=== PATIENT | female | born 1975 | race Caucasian/White ===

== ENCOUNTER → 2018-12-11 15:58 | Outpatient (CLI) | payer OTHER, SELFPAY ==
--- NOTE | 2018-12-11 | DI.US.S_ITS ---
PROCEDURE: US ABDOMEN COMPLETE INDICATIONS: UNSPECIFIED ABDOMINAL PAIN TECHNIQUE: Real-time scanning was performed of the abdominal and retroperitoneal organs, with image documentation. COMPARISON: None. FINDINGS: Liver: Liver is normal in size and homogeneous in echotexture. Gallbladder: The gallbladder wall measures 3.6 mm in diameter. There is a mild sonographic Nelson's sign. No pericholecystic fluid. A solitary shadowing stone is present within the gallbladder fundus. Biliary ducts: Intrahepatic bile ducts are non-dilated. Extrahepatic bile duct caliber measures 4.6 mm. Normal is 6-7 mm or less in diameter, or 10 mm or less post-cholecystectomy. Pancreas: The pancreas is not well-visualized. Spleen: Spleen is normal in size and homogeneous in echotexture. Kidneys: Kidneys are normal in size and echotexture. Right kidney measures 12.2 cm long; left kidney measures 12.0 cm long. No hydronephrosis or nephrolithiasis. No solid masses. Aorta: Visualized aorta is normal in caliber at less than 3 cm. Iliacs: Proximal common iliac arteries are normal in caliber at less than 2.5 cm. IVC: Intrahepatic inferior vena cava is patent. Miscellaneous: No free abdominal fluid. IMPRESSION: 1. Cholelithiasis. Gallbladder wall the upper limits of normal for size. There is no pericholecystic fluid to definitively suggest acute cholecystitis; however please correlate with LFTs and white blood cell count. Early acute cholecystitis could be considered in the differential diagnosis. 2. No findings to suggest choledocholithiasis. Dictated by: Tereza Monte M.D. on 12/12/2018 at 9:15 Approved by: Tereza Monte M.D. on 12/12/2018 at 9:18
== END ==
PROVIDERS: PCP Family Medicine; Visit Provider Family Medicine
DX: R10.9 Unspecified abdominal pain (principal); K80.20 Calculus of gallbladder without cholecystitis without obstruction
CPT/HCPCS: 76700

== ENCOUNTER 2019-08-06 10:31 | Emergency (ER) | payer OTHER, SELFPAY ==
[2019-08-06] VITALS (10 sets, daily range): BP systolic 121–150; BP diastolic 64–91; PULSE 61–88; RESP 15–25; TEMP 36.7; O2SAT 98–100; BMI 48.3
--- NOTE | 2019-08-06 10:49 | DI.RAD.S_ITS ---
PROCEDURE: XR ANKLE RT 2V INDICATIONS: right ankle deformity after a fall TECHNIQUE: 2 views of the ankle were acquired. COMPARISON: None. FINDINGS: Bones: Acute displaced fractures involving distal fibular shaft and posterior malleolus is seen with complete disruption of ankle mortise and posterior lateral subluxation/dislocation at tibiotalar joint. No suspicious bony lesions. Soft tissues: No tibiotalar joint effusion. Achilles tendon appears normal. IMPRESSION: Fracture dislocation at right ankle joint as above. Dictated by: Esteban Valadez M.D. on 08/06/2019 at 11:03 Approved by: Esteban Valadez M.D. on 08/06/2019 at 11:04
[2019-08-06] MEDS: KETOROLAC 60 MG/2 ML VIAL 30 MG IV (11:22)
[2019-08-06] MEDS: SODIUM CHLORIDE 0.9% 1,000 ML 1000 ML IV (11:35)
[2019-08-06] MEDS: HYDROMORPHONE 0.5 MG INJ IV (11:36)
--- NOTE | 2019-08-06 11:59 | ED.LOWEXIN ---
HPI - Extremity Injury (Lower) <MARCEL Richter - Last Filed: 08/06/19 16:41> General Chief Complaint: Extremity Injury, Lower Stated Complaint: Right ankle Fracture Time Seen by Provider: 08/06/19 11:07 Source: patient and EMS Mode of arrival: EMS Limitations: no limitations History of Present Illness HPI Narrative: 44yo obese female presents to the emergency department via EMS for right ankle pain and deformity that occurred after a fall while hiking in [facility]. Patient complains of significant 10/10 pain and inability to put weight on leg after fall. She reports significant pain with movement. She states she is able to wiggle her toes. She denies any previous fracture or any other medical issues. Patient denies any dizziness or syncope before after the fall. She denies any fevers, chills, cough, shortness of breath, nausea, vomiting, diarrhea, chest pain, or any other concerns. Patient denies any other injury such as knee pain, wrist pain, neck pain, or head injury. Related Data Previous Rx's Medication Instructions Recorded ondansetron 4 mg PO Q6H PRN #14 tab 08/06/19 oxycodone-acetaminophen [Percocet] 1 tab PO Q4-6H PRN #20 tab 08/06/19 Allergies Allergy/AdvReac Type Severity Reaction Status Date / Time No Known Drug Allergies Allergy Verified 08/06/19 10:40 Review of Systems <MARCEL Richter - Last Filed: 08/06/19 16:41> Review of Systems Narrative: REVIEW OF SYSTEMS: GENERAL: Denies fever or chills. HENT: No head trauma. EYES: No double vision or vision loss. CARDIOVASCULAR: No chest pain or syncope. RESPIRATORY: No shortness of breath or cough. GASTROINTESTINAL: No nausea, vomiting, diarrhea, or constipation. GENITOURINARY: No flank pain or dysuria. MUSCULOSKELETAL: Complains of right ankle pain, see HPI. INTEGUMENTARY: No rash, lesions, or pruritus. NEURO: No numbness, tingling. Patient History <MARCEL Richter - Last Filed: 08/06/19 16:41> Medical History No significant medical problems (Acute) Social History Smoking Status: Unknown if ever smoked Smoking Status: Unknown if ever smoked alcohol intake frequency: holidays/special occasions only Substance Use Type: does not use Exam <MARCEL Richter - Last Filed: 08/06/19 16:41> Initial Vital Signs Initial Vital Signs: Vital Signs Temperature 98.0 F 08/06/19 10:40 Pulse Rate 70 08/06/19 10:40 Respiratory Rate 15 08/06/19 10:40 Blood Pressure 126/79 08/06/19 10:40 Pulse Oximetry 99 08/06/19 10:40 PHYSICAL EXAMINATION: GENERAL: Well groomed, alert, and cooperative. Obese. Answers questions promptly and appropriately. Vital signs noted. HENT: Normocephalic, atraumatic. EYES: PERRLA. Symmetrical, sclera white, no periorbital swelling. CARDIOVASCULAR: S1 and S2 sounds normal. Regular rate and rhythm, no murmurs, clicks, or bruits. No pedal edema. RESPIRATORY: Normal respiratory rate, trachea midline, airway patent. No stridor, nasal flaring or accessory muscle use. Lungs are clear in all peters. MUSCULOSKELETAL: Deformity of right ankle with medial malleolus dislocation present on external exam. Moderate bruising and swelling noted, distal foot CMS intact, pedal pulses 2+ and strong. Patient able to move toes. Popliteal pulses 2+ and strong. No tenderness with palpation of knee or hip. None tenderness to hands or elbows. No lacerations or lesions to skin. SKIN: Warm, dry, soft, appropriate color for ethnicity. No lesions, rashes, or wounds. NEURO: Alert and Oriented X 3. No sensory deficits. PSYCH: Appropriate affect and mood. <Lars Mitchell MD - Last Filed: 08/06/19 18:20> Initial Vital Signs Initial Vital Signs: Vital Signs Temperature 98.0 F 08/06/19 10:40 Pulse Rate 70 08/06/19 10:40 Respiratory Rate 15 08/06/19 10:40 Blood Pressure 126/79 08/06/19 10:40 Pulse Oximetry 99 08/06/19 10:40 Procedures <MARCEL Richter - Last Filed: 08/06/19 16:41> Orthopedic Fracture Reduction Fracture #1: Time Out Performed: Yes Side: right Fracture Reduction Location: tibia and fibula Analgesia: procedural sedation Technique: direct manipulation Post Reduction X-rays Demonstrate: acceptable reduction Post-reduction neuro exam: intact Post-reduction vascular exam: intact Splint Applied: Yes Patient Tolerated Procedure: Well Additional Comments: Fracture reduction done by Dr. Mitchell. Propofol was administered, started with a loading dose of 40 mg, titrated dose by 10 mg for a total of 210 mg of propofol. Patient was awake and talking the entire time, did not complain of pain. Manual reduction completed by Dr. Mitchell, I applied the splint. CMS intact before and after splint. Cap refill <2 seconds pre and post splint application. Course <MARCEL Richter - Last Filed: 08/06/19 16:41> Course Course Narrative: Patient was given Toradol to help with pain as well as Dilaudid for sedation. Post sedation patient was given a Percocet, she reported a significant reduction in pain after splinting and reduction. Pain was acceptable after Percocet administration. Patient was able to tolerate crutch training. Orders Ordered: ED Orders 08/06/19 10:49 XR ankle RT 2V Stat 08/06/19 13:11 XR ankle RT min 3V Stat Discontinued Medications Albuterol (Ventolin Hfa) 2 puff INH NOW ONE Stop: 08/06/19 14:17 Hydromorphone HCl (Dilaudid) 0.5 mg IV NOW ONE Stop: 08/06/19 11:29 Last Admin: 08/06/19 11:36 Dose: 0.5 mg Documented by: MARLON Sodium Chloride (Normal Saline 0.9%) 1,000 mls @ 1,000 mls/hr IV BOLUS ONE Stop: 08/06/19 12:29 Last Infusion: 08/06/19 13:16 Dose: 0 mls/hr Documented by: DREWTONRaulito Admin: 08/06/19 11:35 Dose: 1,000 mls/hr Documented by: AMRLON Ketorolac Tromethamine (Toradol) 30 mg IV NOW ONE Stop: 08/06/19 11:12 Last Admin: 08/06/19 11:22 Dose: 30 mg Documented by: MARLON Oxycodone/Acetaminophen (Percocet 5/325) 1 tab PO NOW ONE Stop: 08/06/19 13:18 Last Admin: 08/06/19 13:20 Dose: 1 tab Documented by: MARLON Propofol (Diprivan) 290 mg 2 mg/kg (290 mg) IV NOW ONE Stop: 08/06/19 11:33 Last Admin: 08/06/19 13:13 Dose: 210 mg Documented by: MARLON Consultations Consultation #1: Patient staffed with Dr. Mitchell discussed pre and post reduction films. Dr. Mitchell performed manual reduction. 1317: Spoke with Dr. Bar, orthopedic, reviewed x-ray films. Recommended post reduction films and follow-up outpatient. Vital Signs Vital signs: Vital Signs - 8 hr 08/06/19 10:40 08/06/19 11:28 08/06/19 12:02 Temperature 98.0 F Pulse Rate 70 88 70 Respiratory Rate 15 18 18 Blood Pressure 126/79 Blood Pressure [Right Arm] 131/77 129/83 Pulse Oximetry 99 99 99 08/06/19 12:07 08/06/19 12:30 08/06/19 12:55 Temperature Pulse Rate 61 72 77 Respiratory Rate 18 19 18 Blood Pressure Blood Pressure [Right Arm] 127/66 138/64 127/77 Pulse Oximetry 98 98 100 08/06/19 13:00 08/06/19 13:05 08/06/19 13:10 Temperature Pulse Rate 74 71 69 Respiratory Rate 25 H 24 19 Blood Pressure Blood Pressure [Right Arm] 150/91 H 146/71 H 136/64 Pulse Oximetry 100 100 100 08/06/19 14:31 Temperature Pulse Rate 70 Respiratory Rate 20 Blood Pressure Blood Pressure [Right Arm] 121/65 Pulse Oximetry 100 <Lars Mitchell MD - Last Filed: 08/06/19 18:20> Orders Ordered: ED Orders 08/06/19 10:49 XR ankle RT 2V Stat 08/06/19 13:11 XR ankle RT min 3V Stat Discontinued Medications Albuterol (Ventolin Hfa) 2 puff INH NOW ONE Stop: 08/06/19 14:17 Hydromorphone HCl (Dilaudid) 0.5 mg IV NOW ONE Stop: 08/06/19 11:29 Last Admin: 08/06/19 11:36 Dose: 0.5 mg Documented by: MARLON Sodium Chloride (Normal Saline 0.9%) 1,000 mls @ 1,000 mls/hr IV BOLUS ONE Stop: 08/06/19 12:29 Last Infusion: 08/06/19 13:16 Dose: 0 mls/hr Documented by: Admin: 08/06/19 11:35 Dose: 1,000 mls/hr Documented by: MARLON Ketorolac Tromethamine (Toradol) 30 mg IV NOW ONE Stop: 08/06/19 11:12 Last Admin: 08/06/19 11:22 Dose: 30 mg Documented by: MARLON Oxycodone/Acetaminophen (Percocet 5/325) 1 tab PO NOW ONE Stop: 08/06/19 13:18 Last Admin: 08/06/19 13:20 Dose: 1 tab Documented by: MARLON Propofol (Diprivan) 290 mg 2 mg/kg (290 mg) IV NOW ONE Stop: 08/06/19 11:33 Last Admin: 08/06/19 13:13 Dose: 210 mg Documented by: MARLON Vital Signs Vital signs: Vital Signs - 8 hr 08/06/19 10:40 08/06/19 11:28 08/06/19 12:02 Temperature 98.0 F Pulse Rate 70 88 70 Respiratory Rate 15 18 18 Blood Pressure 126/79 Blood Pressure [Right Arm] 131/77 129/83 Pulse Oximetry 99 99 99 08/06/19 12:07 08/06/19 12:30 08/06/19 12:55 Temperature Pulse Rate 61 72 77 Respiratory Rate 18 19 18 Blood Pressure Blood Pressure [Right Arm] 127/66 138/64 127/77 Pulse Oximetry 98 98 100 08/06/19 13:00 08/06/19 13:05 08/06/19 13:10 Temperature Pulse Rate 74 71 69 Respiratory Rate 25 H 24 19 Blood Pressure Blood Pressure [Right Arm] 150/91 H 146/71 H 136/64 Pulse Oximetry 100 100 100 08/06/19 14:31 Temperature Pulse Rate 70 Respiratory Rate 20 Blood Pressure Blood Pressure [Right Arm] 121/65 Pulse Oximetry 100 MDM - Extremity Injury (Lower) <MARCEL Richter - Last Filed: 08/06/19 16:41> Medical Records Attestation: I reviewed the patient's medical records. Lab Data Attestation: I reviewed the patient's lab results. Labs: Point of Care Testing Test Results Not applicable Imaging Data Extremity x-ray #1: Radiologist's Impression: [address] [address] XRay Report Signed Patient: Fatimah Cosby AMR#: [id number] : 1975Acct:[id number] Age/Sex: 44 / FDate of Service: 08/06/19 Loc: ED Accession Number: [id number] Procedure: XR ankle RT 2V Ordering Provider: Lars Mitchell MD PROCEDURE: XR ANKLE RT 2V INDICATIONS: right ankle deformity after a fall TECHNIQUE: 2 views of the ankle were acquired. COMPARISON: None. FINDINGS: Bones: Acute displaced fractures involving distal fibular shaft and posterior malleolus is seen with complete disruption of ankle mortise and posterior lateral subluxation/dislocation at tibiotalar joint. No suspicious bony lesions. Soft tissues: No tibiotalar joint effusion. Achilles tendon appears normal. IMPRESSION: Fracture dislocation at right ankle joint as above. Dictated by: Esteban Valadez M.D. on 08/06/2019 at 11:03 Approved by: Esteban Valadez M.D. on 08/06/2019 at 11:04 Extremity x-ray #2: Radiologist's Impression: [address] [address] XRay Report Signed Patient: Fatimah Cosby AMR#: [id number] : 1975Acct:[id number] Age/Sex: 44 / FDate of Service: 08/06/19 Loc: ED Accession Number: [id number] Procedure: XR ankle RT min 3V Ordering Provider: Isi Krishnamurthy PROCEDURE: XR ANKLE RT MIN 3V INDICATIONS: Post reduction films TECHNIQUE: 3 views of the ankle were acquired. COMPARISON: [facility], , XR ANKLE RT 2V, 08/06/2019, 10:43. FINDINGS: Bones: There is interval reduction of earlier noted trimalleolar fracture with significantly improved ankle alignment. Slight displacements at medial malleolus and lateral malleolus fracture sites are seen. No suspicious bony lesions. Soft tissues: No tibiotalar joint effusion. Achilles tendon appears normal. IMPRESSION: Interval reduction of earlier noted trimalleolar fracture/dislocation of ankle joint with significantly improved ankle alignment. Dictated by: Esteban Valadez M.D. on 08/06/2019 at 13:28 Approved by: Esteban Valadez M.D. on 08/06/2019 at 13:30 [facility] Narrative Medical decision making narrative: 44-year-old healthy female presents emergency department with a right ankle deformity and x-ray that confirms a trimalleolar fracture and dislocation. No concern for vascular compromise as CMS is intact, pedal popliteal pulses were 2+ and strong. No concern for open fracture as there were no lesion or punctured in the skin. Less concern for other injury due to benign examination, no reports of head injury or other pain. Conscious sedation was used to perform manual reduction by Dr. Mitchell. Patient tolerated procedure well without any complications. Bleeding was placed, CMS remained intact pre and post splint. After discussion with Ortho, patient was referred to outpatient continued follow-up. Crutches were given. She was instructed to not put any weight on her leg. Patient had adequate pain control with Percocet post sedation. She was discharged with medications after counseling a benefits and side effects narcotics. <Lars Mitchell MD - Last Filed: 08/06/19 18:20> Lab Data Labs: Point of Care Testing Test Results Not applicable Discharge Plan Departure Patient Disposition: Home Clinical Impression: Closed trimalleolar fracture Qualifiers: Encounter type: initial encounter Laterality: right Qualified Code(s): S82.851A - Displaced trimalleolar fracture of right lower leg, initial encounter for closed fracture Discharge Date/Time: 08/06/19 15:08 Instructions: Ankle Fracture Activity Restrictions/Additional Instructions: Thank you for entrusting me with your care today. As discussed, you have multiple fractures in your right ankle. We have realigned the bone but you will most likely need surgery. It is important that you follow-up with an orthopedic, please call the office listed below as soon as possible to schedule an appointment. Keep your foot elevated, if you feel the Say wrap is wrapped too tight, you may loosen it slightly. Do not remove the splint at any time, do not put any weight on your leg. Return emergency department immediately if you notice discoloration in her toes, severe pain, numbness and tingling, or any other concerns. I have given you a medication for nausea as the pain medications can make you nauseated. You have been prescribed a narcotic medication, this medication can make you drowsy. Do not drive while using this medication or perform activities that require mental alertness. These medications can also make you constipated, please use [id number] docusate sodium as needed for constipation. Prescriptions: New oxycodone-acetaminophen [Percocet] 5-325 mg tablet 1 tab PO Q4-6H PRN (Reason: pain) Qty: 20 RF: 0 ondansetron 4 mg tablet,disintegrating 4 mg PO Q6H PRN (Reason: nausea and vomiting) Qty: 14 RF: 0 Referrals: Alise Liriano MD [Physician] - (Trimalleolar fracture) Judd Roy MD [Primary Care Provider] -
--- NOTE | 2019-08-06 13:11 | DI.RAD.S_ITS ---
PROCEDURE: XR ANKLE RT MIN 3V INDICATIONS: Post reduction films TECHNIQUE: 3 views of the ankle were acquired. COMPARISON: [facility], CR, XR ANKLE RT 2V, 08/06/2019, 10:43. FINDINGS: Bones: There is interval reduction of earlier noted trimalleolar fracture with significantly improved ankle alignment. Slight displacements at medial malleolus and lateral malleolus fracture sites are seen. No suspicious bony lesions. Soft tissues: No tibiotalar joint effusion. Achilles tendon appears normal. IMPRESSION: Interval reduction of earlier noted trimalleolar fracture/dislocation of ankle joint with significantly improved ankle alignment. Dictated by: Esteban Valadez M.D. on 08/06/2019 at 13:28 Approved by: Esteban Valadez M.D. on 08/06/2019 at 13:30
[2019-08-06] MEDS: propofoL 200 MG/20 ML VIAL 290 MG IV (13:13)
[2019-08-06] MEDS: OXYCODONE/ACETAMINOPHEN 5/325 TABLET 1 TAB PO (13:20)
--- NOTE | 2019-08-06 13:32 | PC.NURSE ---
pt had procedural sedation Propolol 210 mg given by provider. pt tolerated procedure well. was talking during the procedure. ETco2 during the reduction was between 32-40. vital signs stable. c/o slight achy pain after reduction. percocet given. tolerated crackers. AAOx4, vital signs entered by ALEYDA Sullivan
== END 2019-08-06 15:08 | disposition home or self-care (01) ==
PROVIDERS: Emergency Provider Nurse Practitioner; PCP Family Medicine
DX: S82.851A Displaced trimalleolar fracture of right lower leg, initial encounter for closed fracture (principal); W19.XXXA Unspecified fall, initial encounter; E66.9 Obesity, unspecified
CPT/HCPCS: 27810; 29515; 73600; 73610; 94770; 96361; 96374; 96375; 99152; 99285; J1170; J1885; J2704

== ENCOUNTER → 2019-08-12 08:46 | Outpatient (CLI) | payer OTHER, MEDICAID, SELFPAY ==
[2019-08-12 10:53] LABS: Add Manual Diff / Slide Review NO; Basophils Absolute Auto 0 /uL (0-100); Basophils Percent Auto 0.6 % (0-2); Eosinophils Absolute Auto 300 /uL (0-450); Eosinophils Percent Auto 3.6 % (2-4); Hematocrit 39.3 % (36-46); Hemoglobin 13.2 g/dL (12.0-16.0); Lymphocytes Absolute Auto 1500 /uL (1100-4500); Lymphocytes Percent Auto 20.9 % (25-40); Mean Corpuscular HGB Conc 33.6 % (30-36); Mean Corpuscular Hemoglobin 29.8 PG (26-34); Mean Corpuscular Volume 88.8 fL (80-100); Monocytes Absolute Auto 600 /uL (0-900); Monocytes Percent Auto 7.5 % (3-14); Neutrophils Absolute Auto 5000 /uL (1500-7000); Neutrophils Percent Auto 67.4 % (50-75); Platelet Count 293 X10^3/uL (150-400); Red Blood Cell Count 4.43 X10^6/uL (4.0-5.2); Red Cell Distribution Width 14.1 % (11.6-14.8); White Blood Cell Count 7.4 X10^3/uL (4.5-11.0)
[2019-08-12 11:01] LABS: BUN Creatinine Ratio 24.6 (6-22); Blood Urea Nitrogen 15 mg/dL (7-17); Calcium 9.2 mg/dL (8.4-10.2); Carbon Dioxide 26 mmol/L (22-32); Chloride 104 mmol/L (98-107); Estimated Glomerular Filt Rate > 60.0 mL/min (>60); Glucose 81 mg/dL (70-100); HEMOLYSIS < 15 (0-50); Potassium 4.3 mmol/L (3.4-5.1); Sodium 137 mmol/L (137-145)
[2019-08-13 02:07] LABS: COVID19 Sendout Not Detected (Not Detect)
== END ==
PROVIDERS: Family Medicine; PCP Family Medicine; Referring Provider Orthopaedic Surgery Adult Reconstructive Orthopaedic Surgery; Visit Provider Orthopaedic Surgery Adult Reconstructive Orthopaedic Surgery
DX: Z01.818 Encounter for other preprocedural examination (principal); Z01.812 Encounter for preprocedural laboratory examination
CPT/HCPCS: 36415; 80048; 85025; 87635; 93005

== ENCOUNTER → 2019-08-13 09:29 | Outpatient (CLI) | payer OTHER, MEDICAID, SELFPAY ==
--- NOTE | 2019-08-13 09:38 | DI.CT.S_ITS ---
PROCEDURE: CT LE RT WO CON INDICATIONS: OTHER FRACTURE OF RIGHT LOWER LEG TECHNIQUE: Noncontrast 1-1.5 mm axial sections acquired from above the tibiotalar joint to the bottom of the calcaneus, with coronal and sagittal reformats. COMPARISON: [facility], CR, XR ANKLE RT MIN 3V, 08/06/2019, 13:13. FINDINGS: Image quality: Excellent. Bones: As seen on previous ankle radiograph, there is an acute transverse and slightly comminuted fracture involving medial malleolus with medially displaced fractured fragment and up to 6 mm diastases. There is also a comminuted fracture involving posterior lateral corner of distal tibia with dorsal and lateral displacement of fracture fragments measures up to 4 mm in distance. Comminuted and impacted fracture involving distal fibular shaft is seen with multiple displaced fragment including a large fragment displaced anteriorly and laterally by approximately 9 mm in distance. There is disruption of ankle mortise. No kin dislocation. No other fracture is seen. Soft tissues: Plantar aponeurosis is grossly intact. Achilles tendon is intact. There is no full-thickness rupture of extensor, flexor, or peroneus tendons. Mild ankle soft tissue swelling around fracture site is seen. Small amount of tibiotalar joint effusion is also noted. IMPRESSION: 1. Comminuted and slightly displaced trimalleolar fracture of ankle as above. There is disruption of ankle mortise. 2. Small amount of joint fluid. Soft tissue swelling around ankle fracture site. No full-thickness ankle tendon rupture. Dictated by: Esteban Valadez M.D. on 08/13/2019 at 10:44 Approved by: Esteban Valadez M.D. on 08/13/2019 at 10:53
== END ==
PROVIDERS: PCP Family Medicine; Referring Provider Orthopaedic Surgery Adult Reconstructive Orthopaedic Surgery; Visit Provider Orthopaedic Surgery Adult Reconstructive Orthopaedic Surgery
DX: S82.851A Displaced trimalleolar fracture of right lower leg, initial encounter for closed fracture (principal); X58.XXXA Exposure to other specified factors, initial encounter
CPT/HCPCS: 73700

== ENCOUNTER 2019-08-14 08:15 | Day surgery (SDC) | payer OTHER, MEDICAID, SELFPAY ==
[2019-08-13 08:40] VITALS: BMI 42.4
[2019-08-14] VITALS (11 sets, daily range): BP systolic 111–136; BP diastolic 61–86; PULSE 71–83; RESP 12–20; TEMP 36.7–36.9; O2SAT 95–99; BMI 42.4
--- NOTE | 2019-08-14 | DI.RAD.S_ITS ---
PROCEDURE: XR ANKLE RT 2V INDICATIONS: ORIF RIGHT ANKLE TECHNIQUE: Multiple intraoperative fluoroscopic views of the ankle were acquired. COMPARISON: [facility], CR, XR ANKLE RT MIN 3V, 08/06/2019, 13:13. FINDINGS: Bones: Intraoperative fluoroscopic views demonstrate ORIF of the right ankle. Fracture fragments are in near-anatomic alignment. IMPRESSION: Status post ORIF of the right ankle fracture. Approved by: Tereza Monte M.D. on 08/14/2019 at 15:07
[2019-08-14] MEDS: LACTATED RINGERS 1,000 ML 42 ML IV ×2 (08:40→14:01)
--- NOTE | 2019-08-14 10:27 | PM.PREOP ---
Pre-operative Note COVID-19 COVID-19 status: Negative Result date/Date tested (Pos, Neg/Pending): 08/12/19 Interval Note History & Physical reviewed/Exam performed by Physician: Yes Changes to H&P: No H&P completed within 30 days and has changed as indicated here:: Patient is a 44 yo F who sustained a right trimalleolar ankle fracutre. The posterior malleolus segment is less than 25% of the articular surface. Plan for right ankle ORIF and placement of syndesmotic screw.
[2019-08-14] MEDS: CEFAZOLIN 2 GM/100 ML FROZ.PIGGY IV (11:03)
--- NOTE | 2019-08-14 11:20 | PM.PROC.1 ---
Procedures Nerve Block Time out performed: Yes Local anesthetic used: other (5mL 2% Lidocaine, 15mL 0.5% Ropivacaine) Location of anesthetic used: lateral popliteal Amount of anesthesia used (mL): 20 Nerve blocks: other (sciatic nerve) Procedure successful: Yes Patient tolerated procedure: well Complications: none Additional comments: RIGHT Ultrasound guided lateral popliteal sciatic nerve block for post operative pain management, as discussed with surgeon. Risks, benefits discussed. Consent verified. Site marked by surgeon. Time out performed. Standard ASA monitors applied, LMA, GA post-procedure in OR. Pt supine. Chloroprep. Sterile US sleeve and gel. Sciatic nerve identified proximal to popliteal fossa, at bifurcation. Lidocaine local skin wheal. 100mm x 21g Pajunk needle advanced with in-plane US guidance to nerve. Negative aspiration. 5mL 2% lidocaine and 15mL 0.5% ropivacaine injected with intermittent negative aspiration. Good LA spread noted on US. No pain, no paresthesias. VSS.
--- NOTE | 2019-08-14 11:22 | P.PCN_ITS ---
Procedures Nerve Block Time out performed: Yes Local anesthetic used: lidocaine 1% (w/ epi 5mL + 5mL 0.5opivacaine) Location of anesthetic used: adductor canal Amount of anesthesia used (mL): 20 Nerve blocks: femoral (adductor canal) Procedure successful: Yes Patient tolerated procedure: well Complications: none Additional comments: Adductor canal block for post operative pain management. R/B discussed. Site marked. Consent verified/signed. Standard ASA monitors. LMA, GA, post-procedure in OR. Chloroprep. Sterile technique. Femoral A/V/N identified medial mid thigh with US. 100mm x 21g Pajunk needle advanced with in-plane US guidance. Negative aspiration. LA injected medial and lateral to femoral artery. Negative aspiration throughout. VSS. To PACU.
--- NOTE | 2019-08-14 11:33 | SUR.OPER ---
Supine on padded OR bed, head on pillow, arms secured on padded arm boards at <90 degrees abduction, bump under right hip, right leg under control of surgeon, safety belt at thigh, tape over blanket over left lower leg.
[2019-08-14] MEDS: ROPIVACAINE 0.5% PF 5 MG/ML 20ML VIAL 10 ML INJ (11:44)
[2019-08-14] MEDS: KETOROLAC 30 MG/ML VIAL INJ (11:45)
[2019-08-14] MEDS: MORPHINE 4 MG/ML INJ INJ (11:46)
--- NOTE | 2019-08-14 13:27 | P.OP_ITS ---
Operative Date/Time/Diagnoses Date of procedure: 08/14/19 Time of procedure: 13:27 Pre-op diagnosis: right trimalleolar ankle fracture Post-op diagnosis: same Procedure & Clinicians Procedure: ORIF R ankle, placement of syndesmotic screw Same procedure as scheduled: Yes Indications: right trimalleolar ankle fracture Surgeon: Moy Bar Click Yes if Unassisted: Yes Anesthesia Type: General Operative Notes Findings: Right trimalleolar ankle fracture Closure Type: primary Prosthetic devices, grafts, tissues, transplants, or devices: Arthrex locking distal fibular plate 3.5mm x 50mm syndesmotic screw 2x medial malleolar screws, fully threaded, canulated Estimated Blood Loss (mL): 200 Blood products transfused: none Tourniquet time (min): 80 Procedure in detail: Patient was met in the preoperative holding area where the site and side of surgery were marked by . Consent was reviewed with the patient including the risks of infection, DVT, PE, damage to local structures such as vessels and nerves, continuing pain, stiffness, need for future surgeries, etc. Patient demonstrates understanding of these risks and benefits and wishes to proceed with open reduction internal fixation of right tr imalleolar ankle fracture. Patient was then brought back in the operating room where she was placed on the operating room table. She was induced under general anesthesia. A nonsterile tourniquet was placed on the right thigh and the right lower extremity then prepped and draped in normal sterile fashion. A surgical time-out was performed verifying the site and side of surgery as well as the name of the patient. The tourniquet was then insufflated 250 mm of mercury. A 8 cm long incision over the lateral malleolus was then made through skin with a 15. Blade followed by a combination of sharp and blunt dissection using scissors and a wood handle elevator down to the level of the lateral malleolus fracture. At this point a large free intercalary piece was removed. All soft tissue attachments had been stripped. This was then placed into a cup of normal saline on the back table. There was a posterior daniella and a lobster claw clamp was used to bring the fibula out to length. The intercalary segment piece was then cleaned and placed back into its wound bed. A lateral locking plate was then selected and provisionally tacked down using a BB Ari as well as 13.5 mm cortical screw proximally. X-rays were then taken and it appeared that we were short at the lateral malleolus compared to anatomic. At this point was decided to fill in the rest of the locking screws distally and then do a push technique to regain length. The locking screws were placed into the distal segment BB Ari was then placed proximal to the plate laminar supervising law enforcement analyst was used and the 3.5 mm cortical screw wa s removed allowing us to gain length and alignment prior was then elongated and fluoroscopic views were obtained were happy with our length and overall reduction. At this point a new 3.5 mm screw was then drilled in placed. The BB Ari was then removed. Two more 3.5 mm cortical screws were placed proximally. At this point we then turned our attention to the syndesmotic screw. This was placed approximately 0.5-2 cm proximal to the joint line. This was placed under fluoroscopic guidance. Next we returned our attention to the medial malleolus a 5 cm incision over the medial malleted was then created using 15. Blade followed by combination of sharp and blunt dissection down to the level of medial malleolus fracture. A [id number] clamp was able to be used to reduce the fracture. Two threaded tipped K-wires were then placed and subsequently over drilled and placed 40 mm long threaded cannulated screws were then placed. Fluoroscopic imaging was obtained to verify our reduction as well as to verify that the screws did not penetrate the joint. At this point final imaging was obtained the wounds were both thoroughly irrigated and the tourniquet was let down. No arterial bleeding. Hemostasis was obtained using electrocautery. Two Vicryl was then used set close subcutaneous tissue followed by 3 0 vertical mattress nylons in the skin layer followed by Xeroform dressings followed by a short-leg splint. Complications: none Post-operative Condition: stable Disposition: same day surgery Plan for aftercare: Patient is nonweightbearing on the right lower extremity. She will follow up in 10-14 days postoperatively for splint removal as well as wound check and suture removal. Plan will be to transition to a Cam boot at that time and she will be nonweightbearing for further 4 weeks.
[2019-08-14] MEDS: HYDROMORPHONE 2 MG INJ IV ×4 (13:42→14:13)
[2019-08-14] MEDS: OXYCODONE/ACETAMINOPHEN 5/325 TABLET 1 TAB PO (14:06)
--- NOTE | 2019-08-14 16:55 | SUR.PHASEII ---
Pt ready to go, assited to dress, and left when ready and in stable condition
== END 2019-08-14 15:10 | disposition home or self-care (01) ==
PROVIDERS: PCP Family Medicine; Referring Provider Orthopaedic Surgery Adult Reconstructive Orthopaedic Surgery; Visit Provider Orthopaedic Surgery Adult Reconstructive Orthopaedic Surgery
PROC: 0SSF04Z Reposition Right Ankle Joint with Internal Fixation Device, Open Approach (ICD-10-PCS; CPT 27814; principal; 2019-08-14 10:00)
DX: S82.851A Displaced trimalleolar fracture of right lower leg, initial encounter for closed fracture (principal); W01.0XXA Fall on same level from slipping, tripping and stumbling without subsequent striking against object, initial encounter; Y93.01 Activity, walking, marching and hiking
CPT/HCPCS: 27814; 73600; 76000; J0690; J1100; J1170; J1885; J2250; J2270; J2405; J2704; J3010

== ENCOUNTER → 2019-08-30 14:39 | Outpatient (CLI) | payer OTHER, MEDICAID, SELFPAY ==
[2019-08-31 02:34] LABS: COVID19 Sendout Not Detected (Not Detect)
== END ==
PROVIDERS: PCP Family Medicine; Visit Provider Physician Assistant
DX: Z01.818 Encounter for other preprocedural examination (principal)
CPT/HCPCS: 87635

== ENCOUNTER 2019-09-02 08:43 | Day surgery (SDC) | payer OTHER, MEDICAID, SELFPAY ==
[2019-09-01 10:54] VITALS: BMI 42.4
[2019-09-02] VITALS (12 sets, daily range): BP systolic 112–139; BP diastolic 56–89; PULSE 69–96; RESP 12–24; TEMP 36.3–37.4; O2SAT 91–98; BMI 46.0
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
[2019-09-02] MEDS: LACTATED RINGERS 1,000 ML 42 ML IV ×2 (09:26→12:51)
[2019-09-02] MEDS: OXYCODONE IR 5 MG TABLET PO (10:11)
--- NOTE | 2019-09-02 10:12 | SUR.PREOP ---
patient reported pain in her rt ankle. Dr. Bar notified. VVO for home pain medication Oxycodone 5mg, which was given.
--- NOTE | 2019-09-02 11:09 | PM.PREOP ---
Pre-operative Note COVID-19 COVID-19 status: Negative Result date/Date tested (Pos, Neg/Pending): 08/30/19 Interval Note History & Physical reviewed/Exam performed by Physician: Yes Changes to H&P: No H&P completed within 30 days and has changed as indicated here:: Patient is now a little over 2 weeks s/p ORIF of right ankle fracture. At her first post-op visit it was noted that her medial malleolus was displaced. When reviewed with the patient she thinks she 'may have' put weight through the foot. We discussed the risks and benefits of repeat ORIF of the ankle. Patient wishes to proceed with removal of hardware and repeat ORIF of right ankle.
[2019-09-02] MEDS: CEFAZOLIN 2 GM/100 ML FROZ.PIGGY IV (11:26)
[2019-09-02] MEDS: CEFAZOLIN 1 GM VIAL IV (11:26)
--- NOTE | 2019-09-02 12:10 | SUR.OPER ---
Supine on padded OR bed, head on pillow, arms secured on padded arm boards at <90 degrees abduction, legs uncrossed, safety belt at thigh, tape over blanket over lower legs.
[2019-09-02] MEDS: ONDANSETRON 4 MG/2 ML INJ IV (13:49)
[2019-09-02] MEDS: fentaNYL 100 MCG/2 ML INJ IV ×2 (13:49→14:07)
[2019-09-02] MEDS: HYDROMORPHONE 2 MG INJ IV ×2 (13:49→14:06)
--- NOTE | 2019-09-02 14:04 | P.OP_ITS ---
Operative Date/Time/Diagnoses Date of procedure: 09/02/19 Time of procedure: 14:04 Pre-op diagnosis: failed fixation of medial mal hardware Post-op diagnosis: same Procedure & Clinicians Procedure: Removal of hardware ORIF medial malleolus fracture Same procedure as scheduled: Yes Indications: Failed fixation of a medial malleolus fracture with cannulated screws Surgeon: Moy Bar Street Light Servicer: Moy Bar Click Yes if Unassisted: Yes Anesthesia Type: General Operative Notes Findings: Medial malleolus with failed fixation. Cortical break of the medial wall allowing escape of the fracture. Closure Type: primary Specimen(s): none sent Prosthetic devices, grafts, tissues, transplants, or devices: 2x .045 threaded tip K-wires 1x 24mm 4-0 cancellous screw and washer 20 gauge wire Estimated Blood Loss (mL): 50 Blood products transfused: none Tourniquet time (min): 54 Procedure in detail: Patient was seen in the office for 2 week postoperative visit for wound check and x-rays of her right ankle after open reduction internal fixation of a trimalleolar ankle fracture. At that time was noted that she had displacement of the medial malleolus and failure of the cannulated screws at that site. It was determined that she would need revision open reduction internal fixation of the medial malleolus. Patient was seen in the preoperative holding area where the site and side of surgery were marked by . Review of consent was performed including the risks and benefits risks include infection, need for future surgeries, arthritis, DVT PE, damage to local structures such as vessels and nerves, etc. risks of not performing surgery were also reviewed including the risk of significant arthritis and degeneration of the ankle joint. And forms consent was signed and patient wishes to proceed. Patient brought back in the operating room where she was induced under general anesthesia. The right lower extremity then prepped and draped in normal sterile fashion after a nonsterile tourniquet was placed. Time-out was performed verifying the site and side of surgery as well as the name of the patient. The right lower extremity was extending exsanguinated with a Esmarch and the tourniquet was insufflated to 250 mm of mercury. A 5 cm long incision over the medial malleolus was made through the old surgical site. Subcutaneous Vicryl sutures were removed. Fracture site was identified and the cannulated screws were removed. At this point was noted that the cannulated screws had fractured through the medial cortex of the medial malleolus fracture. The fracture was reduced with a crsdz-qr-[id number] clamp. This point was determined that the was not enough viable bone stock at this point to place cannulated screws. .45 threaded tip K-wires were placed under fluoroscopic guidance. These were divergent in nature. There appeared to be a small cortical step-off and fall in the medial malleolus. The step-off was seen at the inferior medial aspect of the fracture fragment however there was concern that this may translate into a intra- articular defect. Was able to run a [place] over the intra-articular portion of the fracture and no step-off was appreciated. At this point I drilled for a 4-0 cancellous screw proximal to the medial malleolus fracture. This screw was directed between the 2 K-wires on the lateral view. A cerclage tension band construct was used. 20 gauge wire was then looped around the and the exposed K-wire and then placed our underneath a washer on the for 4-0 cancellous screw. The cancellous screw was not tightened down to bone. This allowed the cerclage wire to be tightened. Cerclage wire was tightened sequentially a 3rd anterior and posterior limb. The cancellous screw was then snugged down. The K-wires were bent to create a hook and snipped to length. These were then turned to the hook capture the cerclage wire these were then tamped down flush to bone. The tourniquet was let down at 54 minutes. Imaging was obtained showing good maintenance of reduction of the medial malleolus stress views were also obtained which did not demonstrate any medial clear space widening or talar tilt. The bone was then thoroughly irrigated and closed with 0 Vicryl followed by 2 Vicryl the subcutaneous layer followed by 3 O nylon in a horizontal mattress fashion. A short leg splint was then placed. Complications: none Post-operative Condition: stable Disposition: PACU Plan for aftercare: LEO KO DC home when stable from PACU
--- NOTE | 2019-09-02 14:14 | SUR.PHASEI ---
Crackers and gingerale provided.
[2019-09-02] MEDS: METOCLOPRAMIDE 10 MG/2 ML INJ IV (14:18)
[2019-09-02] MEDS: HYDROCODONE/ACET 5/325 TABLET 1 TAB PO (14:19)
== END 2019-09-02 15:00 | disposition home or self-care (01) ==
PROVIDERS: PCP Family Medicine; Referring Provider Orthopaedic Surgery Adult Reconstructive Orthopaedic Surgery; Visit Provider Orthopaedic Surgery Adult Reconstructive Orthopaedic Surgery
PROC: 0SSF04Z Reposition Right Ankle Joint with Internal Fixation Device, Open Approach (ICD-10-PCS; CPT 27766; principal; 2019-09-02 10:45)
DX: M96.671 Fracture of tibia or fibula following insertion of orthopedic implant, joint prosthesis, or bone plate, right leg (principal); T84.028A Dislocation of other internal joint prosthesis, initial encounter; Z96.698 Presence of other orthopedic joint implants; E66.9 Obesity, unspecified
CPT/HCPCS: 27766; 73610; 76000; J0690; J1100; J1170; J2250; J2405; J2704; J2765; J3010

== ENCOUNTER → 2020-07-07 13:18 | Outpatient (CLI) | payer OTHER, MEDICAID, SELFPAY ==
[2020-07-07] MEDS: COVID-19 VACC #1, MRNA(MOD) 100 MCG/0.5 ML VIAL IM (13:24)
== END ==
PROVIDERS: Visit Provider Internal Medicine
DX: Z23 Encounter for immunization (principal)
CPT/HCPCS: 0011A; 91301

== ENCOUNTER → 2020-08-04 13:07 | Outpatient (CLI) | payer OTHER, MEDICAID, SELFPAY ==
[2020-08-04] MEDS: COVID-19 VACC #2, MRNA(MOD) 100 MCG/0.5 ML VIAL IM (13:13)
== END ==
PROVIDERS: Visit Provider Internal Medicine
DX: Z23 Encounter for immunization (principal)
CPT/HCPCS: 0012A; 91301

== ENCOUNTER → 2022-02-19 06:45 | Outpatient (CLI) | payer OTHER, MEDICAID, SELFPAY ==
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
== END ==
PROVIDERS: PCP Family Medicine; Referring Provider Family Medicine; Visit Provider Family Medicine
DX: R10.2 Pelvic and perineal pain (principal); N83.202 Unspecified ovarian cyst, left side; Z87.42 Personal history of other diseases of the female genital tract
CPT/HCPCS: 76830; 76856

== ENCOUNTER → 2022-06-13 15:32 | Outpatient (CLI) | payer OTHER, MEDICAID, SELFPAY ==
--- NOTE | 2022-06-13 | DI.MG.S_ITS ---
BILATERAL DIGITAL SCREENING MAMMOGRAM 3D/2D WITH CAD: 06/13/2022 CLINICAL: Baseline exam. Routine screening. No prior exams were available for comparison. There are scattered areas of fibroglandular density in both breasts (category b / 25%-50% glandular tissue). Current study was also evaluated with a Computer Aided Detection (CAD) system. No significant masses, calcifications, or other findings are seen in either breast. IMPRESSION: NEGATIVE There is no mammographic evidence of malignancy. A 1 year screening mammogram is recommended. Based on the Tyrer Cuzick model (a risk assessment model) the patient's lifetime risk is 7.1% and her 10 year risk is 1.3%. According to the ACR, ACS, and NCCN guidelines, an annual breast MRI exam along with mammogram is recommended if the patient's lifetime risk is 20% or greater. This exam was interpreted at Station ID: [id number]. NOTE: For mammograms, a report in lay terms will be sent to the patient. Approximately 15% of breast malignancies will not be visualized mammographically. In the management of a palpable breast mass, a negative mammogram must not discourage biopsy of a clinically suspicious lesion. Electronically Signed By: Narendra self/nora:06/14/2022 07:56:20 letter sent: Normal Exam ACR BI-RADS Category 1: Negative 3341F
== END ==
PROVIDERS: PCP Family Medicine; Referring Provider Family Medicine; Visit Provider Family Medicine
DX: Z12.31 Encounter for screening mammogram for malignant neoplasm of breast (principal)
CPT/HCPCS: 77063; 77067

== ENCOUNTER 2022-09-28 21:50 | Emergency (ER) | payer OTHER, MEDICAID, SELFPAY ==
[2022-09-28 21:50] VITALS: BP 132/86; PULSE 85; RESP 20; TEMP 37.1; O2SAT 95; BMI 45.1
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
--- NOTE | 2022-09-28 23:02 | PC.NURSE ---
This RN reassessed pt's R hand. The ring on her 4th digit continues to move easily on her finger with no sign of circulation compromise.
== END 2022-09-29 00:29 | disposition left against medical advice (07) ==
PROVIDERS: Emergency Provider Emergency Medicine; PCP Family Medicine
DX: S69.91XA Unspecified injury of right wrist, hand and finger(s), initial encounter (principal); R07.81 Pleurodynia; Y04.8XXA Assault by other bodily force, initial encounter
CPT/HCPCS: 71101; 73130; 99281

== ENCOUNTER → 2023-08-12 14:58 | Outpatient (CLI) | payer OTHER, SELFPAY ==
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
== END ==
LOC: US 14:59
PROVIDERS: PCP Family Medicine; Referring Provider Family Medicine; Visit Provider Family Medicine
DX: R10.32 Left lower quadrant pain (principal); N83.9 Noninflammatory disorder of ovary, fallopian tube and broad ligament, unspecified; Z87.42 Personal history of other diseases of the female genital tract
CPT/HCPCS: 76830; 76856; 93976

== ENCOUNTER 2024-08-07 17:48 | Emergency (ER) | payer OTHER, SELFPAY ==
[2024-08-07 17:53] VITALS: BP 141/73; PULSE 94; RESP 16; TEMP 36.9; O2SAT 96; BMI 39.5
[2024-08-07 18:46] LABS: Add Manual Diff / Slide Review NO; Basophils Absolute Auto 100 /uL (0-100); Basophils Percent Auto 0.9 % (0-2); Eosinophils Absolute Auto 100 /uL (0-450); Eosinophils Percent Auto 1.2 % (2-4); Hematocrit 41.5 % (36-46); Hemoglobin 13.7 g/dL (12.0-16.0); Lymphocytes Absolute Auto 2000 /uL (1100-4500); Mean Corpuscular HGB Conc 33.1 % (30-36); Mean Corpuscular Hemoglobin 29.4 PG (26-34); Mean Corpuscular Volume 88.8 fL (80-100); Monocytes Absolute Auto 500 /uL (0-900); Monocytes Percent Auto 6.9 % (3-14); Neutrophils Absolute Auto 4000 /uL (1500-7000); Platelet Count 309 X10^3/uL (150-400); Red Blood Cell Count 4.67 X10^6/uL (4.0-5.2); Red Cell Distribution Width 13.8 % (11.6-14.8); White Blood Cell Count 6.6 X10^3/uL (4.5-11.0)
[2024-08-07 18:52] LABS: Prothrombin Time 11.6 SECONDS (9.4-12.5)
[2024-08-07 19:02] LABS: Alanine Aminotransferase 47 IU/L (<35); Albumin 4.3 g/dL (3.5-5.0); Albumin Globulin Ratio 1.6 (1.0-2.8); Alkaline Phosphatase 70 U/L (38-126); Aspartate Aminotransferase 32 IU/L (14-36); BUN Creatinine Ratio 11.5 (6-22); Bilirubin Total 0.4 mg/dL (0.2-1.3); Blood Urea Nitrogen 10 mg/dL (7-17); Calcium 9.3 mg/dL (8.4-10.2); Carbon Dioxide 26 mmol/L (22-32); Chloride 107 mmol/L (98-107); Estimated Glomerular Filt Rate > 60 mL/min (>60); Globulin 2.7 g/dL (1.7-4.1); Glucose 93 mg/dL (70-99); HEMOLYSIS < 15 (0-50); Lipase 101 U/L (23-300); Potassium 4.3 mmol/L (3.4-5.1); Sodium 142 mmol/L (137-145)
--- NOTE | 2024-08-08 19:36 | ED.ABDPAIN ---
HPI - Abdominal Pain General Chief Complaint: Abdominal Pain Stated Complaint: vomiting blood Source: patient and family Mode of arrival: Ambulatory Related Data Home Medications Medication Instructions Recorded Confirmed dextroamphetamine-amphetamine ER 35 mg PO DAILY 09/02/19 09/02/19 30 mg 24hr capsule,extend release (Adderall XR) venlafaxine 37.5 mg 37.5 mg PO DAILY 09/02/19 09/02/19 capsule,extended release 24 hr Previous Rx's Medication Instructions Recorded oxycodone 5 mg tablet 5 mg PO Q6H PRN pain #60 tabs 08/14/19 Allergies Allergy/AdvReac Type Severity Reaction Status Date / Time No Known Drug Allergies Allergy Verified 08/07/24 17:53 Patient History Medical History (Updated 08/07/24 @ 20:38 by Marychuy Garcia RN) Laceration of left index finger (05/03/14) Ankle fracture, right (08/06/19) No significant medical problems Surgical History (Updated 09/01/19 @ 10:58 by Sharri Hayes RN) History of ankle surgery (08/14/19) Social History household members: spouse alcohol intake: current tobacco type: vaping alcohol intake frequency: a few times a week Exam Initial Vital Signs Initial Vital Signs: Vital Signs Temperature 98.4 F 08/07/24 17:53 Pulse Rate 94 H 08/07/24 17:53 Respiratory Rate 16 08/07/24 17:53 Blood Pressure 141/73 H 08/07/24 17:53 Pulse Oximetry 96 08/07/24 17:53 Oxygen Delivery Method Room Air 08/07/24 17:53 Course Orders Ordered: Discontinued Medications Ondansetron HCl (Ondansetron 4 Mg/2 Ml Inj) 4 mg IV NOW PRN PRN Reason: Nausea And Vomiting Ondansetron HCl (Ondansetron 4 Mg Odt) 4 mg PO NOW PRN PRN Reason: Nausea And Vomiting MDM - Abdominal Pain Lab Data 08/07/24 18:38 08/07/24 18:38 Labs: Lab Results 08/07/24 Range/Units 18:38 WBC 6.6 (4.5-11.0) X10^3/uL RBC 4.67 (4.0-5.2) X10^6/uL Hgb 13.7 (12.0-16.0) g/dL Hct 41.5 (36-46) % MCV 88.8 (80-100) fL MCH 29.4 (26-34) PG MCHC 33.1 (30-36) % RDW 13.8 (11.6-14.8) % Plt Count 309 (150-400) X10^3/uL Neut % (Auto) 61.0 (50-75) % Lymph % (Auto) 30.0 (25-40) % [place] % (Auto) 6.9 (3-14) % Eos % (Auto) 1.2 L (2-4) % Baso % (Auto) 0.9 (0-2) % Neut # (Auto) 4000 (3757-0651) /uL Lymph # (Auto) 2000 (4660-8935) /uL [place] # (Auto) 500 (0-900) /uL Eos # (Auto) 100 (0-450) /uL Baso # (Auto) 100 (0-100) /uL PT 11.6 (9.4-12.5) SECONDS INR 1.0 (0.9-1.3) Sodium 142 (137-145) mmol/L Potassium 4.3 (3.4-5.1) mmol/L Chloride 107 (98-107) mmol/L Carbon Dioxide 26 (22-32) mmol/L BUN 10 (7-17) mg/dL Creatinine 0.87 (0.52-1.04) mg/dL Estimated GFR > 60 (>60) mL/min BUN/Creatinine Ratio 11.5 (6-22) Glucose 93 (70-99) mg/dL Calcium 9.3 (8.4-10.2) mg/dL Total Bilirubin 0.4 (0.2-1.3) mg/dL AST 32 (14-36) IU/L ALT 47 H (<35) IU/L Alkaline Phosphatase 70 (38-126) U/L Total Protein 7.0 (6.3-8.2) g/dL Albumin 4.3 (3.5-5.0) g/dL Globulin 2.7 (1.7-4.1) g/dL Albumin/Globulin Ratio 1.6 (1.0-2.8) Lipase 101 (23-300) U/L Discharge Plan Departure Patient Disposition: Left Without Being Seen Clinical Impression: Patient left without being seen Prescriptions: No Action oxycodone 5 mg tablet 5 mg PO Q6H PRN (Reason: pain) Qty: 60 0RF venlafaxine 37.5 mg capsule,extended release 24hr 37.5 mg PO DAILY dextroamphetamine-amphetamine [Adderall XR] 30 mg Capsule,Extended Release 24hr 35 mg PO DAILY
== END 2024-08-07 20:38 | disposition left against medical advice (07) ==
PROVIDERS: Emergency Medicine; Emergency Provider Family Medicine; PCP Family Medicine
DX: K92.0 Hematemesis (principal)
CPT/HCPCS: 36415; 80053; 83690; 85025; 85610; 99281

== ENCOUNTER → 2024-08-20 14:04 | Outpatient (CLI) | payer OTHER, SELFPAY ==
--- NOTE | 2024-08-20 14:08 | DI.US.S_ITS ---
PROCEDURE: US PELVIC COMPLETE INDICATIONS: F/U POSSIBLE OVARIAN CYST TECHNIQUE: Real-time scanning was performed of the pelvic organs, with image documentation. Additional endovaginal scanning was necessary due to incomplete visualization of the adnexal and endometrial structures by transabdominal scanning. COMPARISON: [facility], US, US PELVIC COMPLETE, 08/12/2023, 15:47. FINDINGS: Uterus: Uterus is anteverted and normal in size at 7.6 x 4.3 x 4.5 cm. The myometrium is homogeneous. The endometrium measures 5.6 mm combined thickness. No focal lesions seen. Ovaries: Not definitively seen. Other: No pathologic free abdominal or pelvic fluid. IMPRESSION: 1. The ovaries are not definitely identified at this time, due to patient body habitus and bowel gas. No definite adnexal mass seen. 2. No focal lesion in the uterus. We strive to produce accurate, complete, and clear reports of imaging services. To assist us in improving patient care, this report was composed using standard report templates and voice recognition software. Therefore, it may contain abnormal punctuation, insertions and/or omissions. Occasional wrong-word or sound-alike substitutions may occur. Though we review the report and make efforts to correct it, we do recommend that the report be read carefully in proper context to recognize any text inaccuracies. Dictated by: Cy Russo M.D. on 08/20/2024 at 21:44 Approved by: Cy Russo M.D. on 08/20/2024 at 21:46
== END ==
PROVIDERS: PCP Family Medicine; Referring Provider Family Medicine; Visit Provider Family Medicine
DX: R10.13 Epigastric pain (principal); N83.202 Unspecified ovarian cyst, left side
CPT/HCPCS: 76830; 76856

== ENCOUNTER → 2025-02-09 10:08 | Outpatient (CLI) | payer OTHER, SELFPAY ==
[2025-02-09 11:46] LABS: Follicle Stimulating Hormone 76.5 mIU/mL
[2025-02-09 12:02] LABS: Estradiol, Total 25.5 pg/mL
[2025-02-09 12:03] LABS: TSH w/ Reflex to FT4 2.99 uIU/mL (0.47-4.68)
== END ==
PROVIDERS: PCP Family Medicine; Referring Provider Obstetrics & Gynecology; Visit Provider Obstetrics & Gynecology
DX: N91.1 Secondary amenorrhea (principal)
CPT/HCPCS: 36415; 82670; 83001; 84146; 84443